=== PATIENT | female | born 1960 | race Hispanic/Latino ===

== ENCOUNTER 2019-01-15 11:19 | Day surgery (SDC) | payer MEDICAID ==
[~2019-01-15 11:19] MED LIST: SODIUM CHLORIDE 0.9% 1000 ML 1,000 ML IV SCH
[2019-01-15] MEDS ORDERED: WATER FOR IRRIG STERILE 250 ML BOTTLE IR ONE (13:01)
[2019-01-15] MEDS ORDERED: PROPOFOL 200 MG/20 ML VIAL IV ONE ×2 (13:06)
[2019-01-15 13:22] VITALS: BP 114/72
--- NOTE | 2019-01-15 13:27 | Anesthesia Consultation ---
Anesthesia Consult and Med Hx Date of service: 01/15/19 - Airway Anesthetic Teeth Evaluation: Dentures ROM Head & Neck: Inadequate Mental/Hyoid Distance: Adequate Mallampati Class: Class II Intubation Access Assessment: Good - Pre-Operative Health Status ASA Pre-Surgery Classification: ASA3 Proposed Anesthetic Plan: MAC - Pulmonary Hx Smoking: Yes (1 ppd) Hx Asthma: No Hx Respiratory Symptoms: No SOB: No COPD: Yes Hx Pneumonia: No Hx Sleep Apnea: No - Cardiovascular System Hx Hypertension: No Hx Coronary Artery Disease: No Hx Heart Attack/AMI: No Hx Angina: No Hx Percutaneous Transluminal Coronary Angioplasty (PTCA): No Hx Cardia Arrhythmia: No Hx Pacemaker: No Hx Internal Defibrillator: No Hx Valvular Heart Disease: No Hx Heart Murmur: No Hx Peripheral Vascular Disease: No - Central Nervous System Hx Neuromuscular Disorder: No Hx Seizures: No CVA: No Hx Back Pain: Yes (hydrocodone, lyrica, baclofen) Hx Psychiatric Problems: Yes (bipolar, anexity, depression) - Gastrointestinal Hx Ulcer: No Hx Gastroesophageal Reflux Disease: Yes (nexium) - Endocrine Hx Renal Disease: No Hx End Stage Renal Disease: No Hx Cirrhosis: No Hx Liver Disease: No Hx Insulin Dependent Diabetes: No Hx Non-Insulin Dependent Diabetes: No Hx Thyroid Disease: No Hx Hypothyroidism: No Hx Hyperthyroidism: No - Hematic Hx Anemia: No Hx Sickle Cell Disease: No - Other Systems Hx Alcohol Use: Yes (occ.) Hx Substance Use: No Hx Cancer: Yes Hx Obesity: No
--- NOTE | 2019-01-15 13:32 | Anesthesia Day of Surgery ---
Anesthesia Day of Surgery - Day of Surgery Patient Examined: Yes Patient H&P Reviewed: Yes Patient is NPO: Yes Beta Blockers: No Cardiac Clearance: No (HR in 40s. Case Cancelled by and HANNAH. Pt to see cardiology )
--- NOTE | 2019-01-15 15:34 | Progress Note ---
Subjective Date of service: 01/15/19 Principal diagnosis: Sinus Bradycardia Interval history: Case postponed as patient has sinus hiral down to the low 40s , she will see a referral agent prior to receiving anesthesia Objective - Constitutional Vitals: Vital Signs - 12hr 01/15/19 01/15/19 13:20 13:22 Temperature 97.3 F L 97.3 F L Pulse Rate 48 L 48 L Respiratory 15 15 Rate Blood Pressure 114/72 114/72 O2 Sat by Pulse 96 96 Oximetry
== END 2019-01-15 11:20 | disposition home or self-care (01) ==
LOC: GIO 11:19
DX: K62.5 Hemorrhage of anus and rectum (principal); R00.1 Bradycardia, unspecified; M19.90 Unspecified osteoarthritis, unspecified site; F31.9 Bipolar disorder, unspecified; J44.9 Chronic obstructive pulmonary disease, unspecified; K21.9 Gastro-esophageal reflux disease without esophagitis; F17.210 Nicotine dependence, cigarettes, uncomplicated; Z53.8 Procedure and treatment not carried out for other reasons; Z85.038 Personal history of other malignant neoplasm of large intestine; Z80.1 Family history of malignant neoplasm of trachea, bronchus and lung; Z80.8 Family history of malignant neoplasm of other organs or systems; Z79.899 Other long term (current) drug therapy; Z88.6 Allergy status to analgesic agent; Z88.8 Allergy status to other drugs, medicaments and biological substances; Z90.710 Acquired absence of both cervix and uterus; Z72.89 Other problems related to lifestyle; Z98.890 Other specified postprocedural states
CPT/HCPCS: 93005; 93010; J2704

== ENCOUNTER 2019-03-03 10:27 | Day surgery (SDC) | payer MEDICAID ==
[2019-03-03] MEDS ORDERED: SODIUM CHLORIDE 0.9% 1000 ML 1,000 ML IV SCH (11:00)
--- NOTE | 2019-03-03 11:25 | Anesthesia Consultation ---
Anesthesia Consult and Med Hx Date of service: 03/03/19 - Airway Anesthetic Teeth Evaluation: Dentures ROM Head & Neck: Inadequate Mental/Hyoid Distance: Adequate Mallampati Class: Class III Intubation Access Assessment: Probably Good - Pulmonary Exam CTA: Yes - Pre-Operative Health Status ASA Pre-Surgery Classification: ASA3 Proposed Anesthetic Plan: MAC - Pulmonary Hx Smoking: Yes (1 ppd; 45 year history) Hx Asthma: No Hx Respiratory Symptoms: No SOB: No COPD: Yes Hx Pneumonia: No Hx Sleep Apnea: No - Cardiovascular System Hx Hypertension: No Hx Coronary Artery Disease: No Hx Heart Attack/AMI: No Hx Angina: No Hx Percutaneous Transluminal Coronary Angioplasty (PTCA): No Hx Cardia Arrhythmia: No Hx Pacemaker: No Hx Internal Defibrillator: No Hx Valvular Heart Disease: No Hx Heart Murmur: No Hx Peripheral Vascular Disease: No - Central Nervous System Hx Neuromuscular Disorder: No Hx Seizures: No CVA: No Hx Back Pain: Yes (hydrocodone, lyrica, baclofen) Hx Psychiatric Problems: Yes (bipolar, anexity, depression) - Gastrointestinal Hx Ulcer: No Hx Gastroesophageal Reflux Disease: Yes (nexium) - Endocrine Hx Renal Disease: No Hx End Stage Renal Disease: No Hx Cirrhosis: No Hx Liver Disease: No Hx Insulin Dependent Diabetes: No Hx Non-Insulin Dependent Diabetes: No Hx Thyroid Disease: No Hx Hypothyroidism: No Hx Hyperthyroidism: No - Hematic Hx Anemia: No Hx Sickle Cell Disease: No - Other Systems Hx Alcohol Use: Yes (occ.) Hx Substance Use: No Hx Cancer: Yes (Precancer cells on the cervix; s/p hysterectomy) Hx Obesity: No
--- NOTE | 2019-03-03 11:26 | Anesthesia Day of Surgery ---
Anesthesia Day of Surgery - Day of Surgery Patient Examined: Yes Patient H&P Reviewed: Yes Patient is NPO: Yes Beta Blockers: No
[2019-03-03] MEDS ORDERED: PROPOFOL 200 MG/20 ML VIAL IV ONE ×2 (11:32)
--- NOTE | 2019-03-03 12:23 | Operative Report ---
PROCEDURE: EGD with biopsy. INDICATIONS: This is a 58-year-old white female who has been having dyspeptic symptoms. She has an underlying history of bipolar disorder and a strong family history of cancer. She is herself has had prior history of uterine cancer. PROCEDURE: Procedure was done after getting informed consent with MAC anesthesia. Instrument was passed through the hypopharynx into the esophagus, which showed erik-sj-hdmerqov erosive esophagitis. Stomach showed gastric erosion and gastritis. Biopsy was done from the gastric antrum, gastric body and angular incisura as well as from the distal esophagus to assess for the severity of the esophagitis. The pylorus was patent. The duodenum in the first and second portion appeared normal. There were no ulcers noted within the gastric or the duodenal lumen. ASSESSMENT: Dyspepsia, mild to moderate erosive esophagitis, gastric erosion, gastritis, no peptic ulcer disease noted, patent pylorus. PLAN: To treat the patient with PPI, have advised the patient avoid aspirin and aspirin-related products for the next 4 days. Follow up in the office in 1-2 weeks' time. The procedure was done in the GI Lab with assistance of the GI Lab team, which included VON Freire as well as the technical producer and with assistance of anesthesia. JOB# [id number] HAI/МАРИНА
--- NOTE | 2019-03-03 12:24 | Procedure Note ---
Date of procedure: 03/02/19 Pre-op diagnosis: Dyspepsia/GERD/Colon Polyp Screening/F/H/O Cancer Post-op diagnosis: other (Mild to Moderate Erosive Esophagitis/ Gastric Erosion and Gastritis/ No Peptic Ulcer Disease noted/Multiple,Small Rectal Polyps (possibly hyperplastic)/ Mild to Moderate Internal Hemorrhoids (possible cause of the Hematochezia but not significant enough for banding).) Procedure: EGD with Biopsy and Colonoscopy with Biopsy [place] [facility] [place]: BRIGITTE BOURGEOIS Estimated blood loss: minimal Pathology: list Specimen disposition: to lab Condition: stable Disposition: same day (Treat with PPI and OTC anti-Hemorrhoidal medication. Avoid aspirin and NSAID for 4 days; otherwise resume home medication. Follow up in 1 to 2 weeks ([phone]).)
--- NOTE | 2019-03-03 12:30 | Operative Report ---
PROCEDURE: Colonoscopy with biopsy. INDICATIONS: This is a 58-year-old white female with underlying history of bipolar disorder. She has a prior history of uterine cancer and also has a family history of cancer. Colonoscopy was done as part of colon polyp screening. Prior to the colonoscopy, she had an EGD done because of dyspepsia, which showed ooff-un-hsqulvin erosive esophagitis, gastric erosion, but no peptic ulcer disease. DESCRIPTION OF PROCEDURE: Colonoscopy was done after getting informed consent with MAC anesthesia. Initial rectal exam was unremarkable. Instrument was passed through the rectum onto the cecum, which was identified with ileocecal valve and the appendiceal orifice. Visualization was fair to good. The mucosa was washed with copious amounts of water. The cecum, ascending colon, transverse colon, descending colon and sigmoid showed normal mucosa. There was no evidence of any polyps, colitis or diverticular disease. In the rectum, there were multiple small possibly hyperplastic polyps noted that were removed by cold biopsy and the rectum also showed mild to moderate internal hemorrhoid, which may have been the cause of the patient's hematochezia. There was minimal bleeding from the biopsy sites. No complications associated with the procedure. ASSESSMENT: Colon polyp screening, multiple rectal polyps, possibly hyperplastic. No diverticular disease noted. Iujb-ld-pxgdsenn internal hemorrhoid. The patient will be encouraged to take sftm-pui-lcmnxbx hemorrhoidal medication. Treat with PPI because of the EGD findings of erosive esophagitis, gastric erosion, gastritis. Have the patient avoid aspirin and aspirin-related products for the next few days and to follow up in the office in 1-2 weeks' time. The procedure was done in the GI Lab with assistance of the GI Lab team, which included RN, Yaritza Freire, including the irrigation technician and with assistance of anesthesia JOB# [id number] HAI/МАРИНА
[2019-03-03 13:07] VITALS: BP 112/72
== END 2019-03-03 10:28 | disposition home or self-care (01) ==
LOC: GIO 10:27
DX: Z12.11 Encounter for screening for malignant neoplasm of colon (principal); K64.8 Other hemorrhoids; K62.1 Rectal polyp; K31.89 Other diseases of stomach and duodenum; K21.0 Gastro-esophageal reflux disease with esophagitis; K30 Functional dyspepsia; F31.9 Bipolar disorder, unspecified; K29.70 Gastritis, unspecified, without bleeding; F17.210 Nicotine dependence, cigarettes, uncomplicated; M19.90 Unspecified osteoarthritis, unspecified site; J43.9 Emphysema, unspecified; F41.9 Anxiety disorder, unspecified; Z79.899 Other long term (current) drug therapy; Z98.890 Other specified postprocedural states; Z90.710 Acquired absence of both cervix and uterus; Z88.6 Allergy status to analgesic agent; Z72.89 Other problems related to lifestyle; Z85.42 Personal history of malignant neoplasm of other parts of uterus; Z80.1 Family history of malignant neoplasm of trachea, bronchus and lung; Z80.8 Family history of malignant neoplasm of other organs or systems; Z80.0 Family history of malignant neoplasm of digestive organs; Z88.8 Allergy status to other drugs, medicaments and biological substances
CPT/HCPCS: 43239; 45380; 88305; 88342; J2704; J7030

== ENCOUNTER 2020-10-27 09:59 | Day surgery (SDC) | payer MEDICAID ==
[2020-10-27] MEDS ORDERED: LIDOCAINE MPF (2%) 20 MG/1 ML VIAL 5 ML ONE (11:00)
[2020-10-27] MEDS ORDERED: ONDANSETRON 4 MG/2 ML INJ ONE (11:00)
--- NOTE | 2020-10-27 11:36 | Anesthesia Day of Surgery ---
Anesthesia Day of Surgery - Day of Surgery Patient Examined: Yes Patient H&P Reviewed: Yes Patient is NPO: Yes
--- NOTE | 2020-10-27 11:36 | Anesthesia Consultation ---
Anesthesia Consult and Med Hx Date of service: 10/27/20 - Airway Anesthetic Teeth Evaluation: Edentulous ROM Head & Neck: Adequate Mental/Hyoid Distance: Adequate Mallampati Class: Class I Intubation Access Assessment: Good - Pre-Operative Health Status ASA Pre-Surgery Classification: ASA3 Proposed Anesthetic Plan: MAC - Pulmonary Hx Smoking: Yes (1PPD) COPD: Yes Home Oxygen Therapy: No - Cardiovascular System Hx Hypertension: No Hx Heart Attack/AMI: No - Central Nervous System CVA: No - Gastrointestinal Hx Gastroesophageal Reflux Disease: Yes - Endocrine Hx Renal Disease: No Hx Liver Disease: No Hx Insulin Dependent Diabetes: No Hx Non-Insulin Dependent Diabetes: No Hx Thyroid Disease: No Hx Hyperthyroidism: No
[2020-10-27] MEDS ORDERED: propofoL 200 MG/20 ML VIAL IV ONE ×3 (11:43→12:26)
--- NOTE | 2020-10-27 12:53 | Procedure Note ---
Date of procedure: 10/27/20 Pre-op diagnosis: Abdominal Pain/ Colitis Post-op diagnosis: other (Mild to Moderate Erosive Esophagitis/ Multiple, Gastric (Antral Ulcers)/ Gastritis/ R/O Celiac Disease/ Multiple, Small recto- Sigmoid Polyps (possibly Hyperplastic)/ R/O Ileitis/ R/O Microscopic Colitis) Procedure: EGD with biopsy/ Colonoscopy with biopsy Anest[place]: [facility] [place] Surgeon: BRIGITTE BOURGEOIS Estimated blood loss: minimal Pathology: list Specimen disposition: to lab Condition: stable Disposition: same day (Treaat with PPI, prn Bentyl and OTC Probiotic. Avoid aspirin and NSAID and anticoagulants for 4 days; otherwise resume home medication. follow up in 1 to 2 weeks ([phone]).)
[2020-10-27 13:56] VITALS: BP 104/51
--- NOTE | 2020-10-27 14:09 | Operative Report ---
DATE OF SURGERY: 10/27/2020 DESCRIPTION OF PROCEDURE: Esophagogastroduodenoscopy done prior to the colonoscopy showed multiple gastric ulcers in the antrum as well as mild to moderate erosive esophagitis and gastritis. Colonoscopy was done to make sure there was not any significant lower GI pathology present that would account for the patient's abdominal pain. Initial rectal examination was unremarkable. The instrument was passed through the rectum onto the cecum, which was identified with ileocecal valve and appendiceal orifice. The patient had a very redundant colon. The cecum was reached with some degree of difficulty. The terminal ileum was intubated, showed normal mucosa. Biopsy was done to rule out for possible ileitis. Cecum, ascending colon, transverse colon showed normal mucosa as did the descending colon. In the sigmoid and rectosigmoid area, there were several small polyps that were noted that were possibly hyperplastic and removed by cold biopsy. The rectum also showed some minor internal hemorrhoid on the retroverted view. ASSESSMENT: Abdominal pain, multiple small rectosigmoid polyps, no diverticula noted. Rule out ileitis, rule out microscopic colitis. PLAN: To treat the patient with PPI because of the EGD findings of esophagitis, gastritis. Also to place the patient on Bentyl on a p.r.n. basis as well as probiotics. Have the patient avoid aspirin and aspirin-related products for the next few days and follow up in the office in 1-2 weeks' time. Procedure was done in the GI lab with assistance of the GI lab team, which included the GI nurse, gate technician and with assistance of anesthesia. TID: [id number] RECEIPT: [id number] HAI/MARIA D
--- NOTE | 2020-10-27 14:12 | Operative Report ---
DATE OF SURGERY: 10/27/2020 PROCEDURE: EGD with biopsy. INDICATIONS: This is a 59-year-old white female who has been having abdominal pain. She does have a history of smoking. DESCRIPTION OF PROCEDURE: EGD was done after getting informed consent. The instrument was passed through the hypopharynx into the esophagus, which showed some bikr-gn-ywbwfjvj distal erosive esophagitis. Photodocumentation and biopsy was obtained. There were two ulcers noted in the gastric antrum close to the gastric pylorus. One was a little larger than the other. They were clean based. Photodocumentation and biopsies were obtained from around the ulcer and also from the ulcer base. Additional biopsy was done from the gastric antrum, gastric body to rule out for H. pylori and atrophic gastritis. The pylorus was patent. The duodenum in the first and second portion appeared normal. Biopsy was done from the second part to rule out for possible celiac disease. There was minimal bleeding associated with the procedure. No complications associated with the procedure. ASSESSMENT: Abdominal pain, peptic ulcers, multiple gastric ulcers noted in the antrum and mild to moderate erosive esophagitis, gastritis, rule out celiac disease. PLAN: Treat the patient with PPI, have the patient avoid aspirin and aspirin-related products for the next few days and if the patient is positive for H. pylori the patient will be treated for that. The patient will be asked to follow up in the office in 1-2 weeks' time. Colonoscopy will also be done for further assessment for any lower abdominal pathology accounting for the patient's abdominal pain and for any colon polyps. Procedure was done in the GI lab with assistance of the GI lab team, which included the GI nurse, the instrument tech and with assistance of anesthesia. TID: [id number] RECEIPT: [id number] HAI/ROSELINE
--- NOTE | 2020-10-27 15:12 | Post Anesthesia Evaluation ---
- Post Anesthesia Evaluation Patient Participated: Yes Airway Patent: Yes Stable Respiratory Function: Yes Nausea/Vomiting: No Temp > 96.8F: Yes Pain Manageable: Yes Adequeate Hydration: Yes Anesthesia Complications: No
== END 2020-10-27 13:25 | disposition home or self-care (01) ==
LOC: GIO 09:59
DX: R10.9 Unspecified abdominal pain (principal); K52.89 Other specified noninfective gastroenteritis and colitis; K63.5 Polyp of colon; K63.89 Other specified diseases of intestine; Z88.6 Allergy status to analgesic agent; F17.210 Nicotine dependence, cigarettes, uncomplicated; J44.9 Chronic obstructive pulmonary disease, unspecified; F31.9 Bipolar disorder, unspecified; K31.89 Other diseases of stomach and duodenum; K64.8 Other hemorrhoids; K29.70 Gastritis, unspecified, without bleeding; K21.00 Gastro-esophageal reflux disease with esophagitis, without bleeding; Z79.899 Other long term (current) drug therapy; Z90.710 Acquired absence of both cervix and uterus; Z98.890 Other specified postprocedural states
CPT/HCPCS: 43239; 45380; 88305; 88342; J2405; J2704; J7030

== ENCOUNTER 2021-03-09 07:28 | Day surgery (SDC) | payer MEDICAID ==
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
--- NOTE | 2021-03-09 08:13 | Anesthesia Day of Surgery ---
Anesthesia Day of Surgery - Day of Surgery Patient Examined: Yes Patient H&P Reviewed: Yes Patient is NPO: Yes
[2021-03-09] MEDS ORDERED: propofoL 200 MG/20 ML VIAL IV ONE (09:18)
[2021-03-09] MEDS ORDERED: LIDOCAINE MPF (2%) 20 MG/1 ML VIAL 5 ML ONE (09:18)
--- NOTE | 2021-03-09 09:43 | Operative Report ---
DATE OF SURGERY: 03/09/2021 PROCEDURE PERFORMED: EGD with biopsy. INDICATIONS: This is a 60-year-old white female with a prior history of a gastric ulcer. EGD was done to make sure that the ulcer had healed. DESCRIPTION OF PROCEDURE: Procedure was done after getting informed consent with MAC anesthesia. The patient has a history of smoking, also gives a history of alcohol use. Instrument was passed through the hypopharynx into the esophagus, which showed some jymu-dr-qtbfnagf distal erosive esophagitis. Biopsy was done from the distal and the mid esophagus to assess for the severity of the erosive esophagitis and to rule out for any eosinophilic esophagitis. Stomach showed evidence of portal gastropathy. Biopsy was done from the gastric antrum, gastric body and angular incisura to rule out for H. pylori and atrophic gastritis with minimal bleeding. No gastric ulcer was noted in the straight or the retroverted view. The pylorus is patent. The duodenum in the first and second portion showed normal mucosa. There was no blood noted within the gastric or the duodenal lumen. ASSESSMENT: History of gastric ulcer, no gastric or duodenal ulcer noted at present, gastritis, mild portal gastropathy, esophagitis, which is mild to moderate; rule out eosinophilic esophagitis, patent pylorus. PLAN: To treat the patient with PPI. I advised the patient to refrain from smoking, alcohol use. Also advised the patient to take her COVID vaccine since she has not taken it as of yet. Continue treatment with PPI and follow up in the office in 1-2 weeks' time. Procedure was done in the GI lab with assistance of the GI lab team, which included the GI nurse, the process controls technician and with assistance of anesthesia. TID: [id number] RECEIPT: [id number] HAI/LEWIS
--- NOTE | 2021-03-09 09:43 | Procedure Note ---
Date of procedure: 03/09/21 Pre-op diagnosis: H/O Peptic Ulcer Disease Post-op diagnosis: other (No Peptic Ulcer Disease noted/ Mild to Moderate, Erosive Esophagitis/ R/O Eosinophilic Esophagitis/ Gastritis and Mild Portal,Gastropathy/ Patent Pylorus) Procedure: EGD with Biopsy Anesthesia: [facility] [place] Surgeon: BRIGITTE BOURGEOIS Estimated blood loss: minimal Pathology: list Specimen disposition: to lab Condition: stable Disposition: same day (Treat with PPI; avoid aspirin and NSAID for 4 days, otherwise resume home medication and F/U in 1 to 2 weeks ([phone]).)
[2021-03-09 15:43] VITALS: BP 107/55
--- NOTE | 2021-03-09 16:51 | Post Anesthesia Evaluation ---
- Post Anesthesia Evaluation Patient Participated: Yes Airway Patent: Yes Stable Respiratory Function: Yes Nausea/Vomiting: No Temp > 96.8F: Yes Pain Manageable: Yes Adequeate Hydration: Yes Anesthesia Complications: No Block Receding Appropriately: Not Applicable Patient on Ventilator: No
== END 2021-03-09 07:29 | disposition home or self-care (01) ==
LOC: GIO 07:28 → EDSTATUS 10:30
DX: K20.90 Esophagitis, unspecified without bleeding (principal); K29.70 Gastritis, unspecified, without bleeding; Z87.11 Personal history of peptic ulcer disease; Z88.6 Allergy status to analgesic agent
CPT/HCPCS: 43239; 88305; 88342; J2704; J3490; J7030; J7120; Q0162